=== PATIENT | female | born 1935 | race Caucasian/White ===

== ENCOUNTER 2017-02-09 21:50 | Emergency (ER) | payer OTHER ==
[~2017-02-09] VITALS: Ht 152.4 cm; Wt 65.0 kg
[~2017-02-09 21:50] MED LIST: ADULT LOW DOSE81 M1 PO; AMPICILLIN500 M1 PO; ASPIR 8181 MG PO; ASPIRIN CHEWABL81 M1 PO; CELEXA10 M1 PO; CELEXA10 MG PO; COBAL-10001000 MCG/2 IM; CYANOCOBALAM1000 MCG PO; DESOXIMETASONE 0.05% TP; Dilantin PO; IRON325 M1 PO; KEFLEX500 MG PO; Keflex PO; Levaquin PO; MITRAZOL POWDER30 GM TP; Milk Of Magnesia,MOM PO; NEOSPORIN BOTH EYES; PRINIVIL5 MG PO; ROBITUSSIN DM T10 ML PO; SEPTRA DS TABL1 EACH PO; SEROQUEL12.5 MG PO; TOPICORT 0.05%60 GM TP; TOPICORT60 GM TP; TYLENOL REGULA325 MG PO; TYLENOL325 M1 PO; Tylenol; VICODIN,LORT1 TABLET PO; ZESTRIL5 MG PO; ZOCOR40 MG PO; Zestril,Prinivil PO; Zocor PO; celeXA PO
[2017-02-10 01:59] VITALS: BP 103/61
== END 2017-02-10 02:25 ==
LOC: EME → EDBD 21:50 → EME 02-10 02:25
DX: S00.83XA Contusion of other part of head, initial encounter (principal); W05.0XXA Fall from non-moving wheelchair, initial encounter; Y92.129 Unspecified place in nursing home as the place of occurrence of the external cause; F02.80 Dementia in other diseases classified elsewhere, unspecified severity, without behavioral disturbance, psychotic disturbance, mood disturbance, and anxiety; G30.9 Alzheimer's disease, unspecified; Z66 Do not resuscitate; E78.5 Hyperlipidemia, unspecified; I10 Essential (primary) hypertension; F32.9 Major depressive disorder, single episode, unspecified; I73.9 Peripheral vascular disease, unspecified; Z88.5 Allergy status to narcotic agent
CPT/HCPCS: 70450; 99281; 99285

== ENCOUNTER → 2017-06-25 | Outpatient (CLI) | payer OTHER ==
[~2017-06-25] VITALS: Ht 160 cm; Wt 44.9 kg
[~2017-06-25] MED LIST changes: +MILK OF MAGN PO
== END ==
LOC: AMB 13:14
PROC: 0DH63UZ Insertion of Feeding Device into Stomach, Percutaneous Approach (ICD-10-PCS; principal; 2017-06-25)
DX: F03.90 Unspecified dementia, unspecified severity, without behavioral disturbance, psychotic disturbance, mood disturbance, and anxiety (principal); R63.6 Underweight; R63.4 Abnormal weight loss; Z68.1 Body mass index [BMI] 19.9 or less, adult; I10 Essential (primary) hypertension; I73.9 Peripheral vascular disease, unspecified; D64.9 Anemia, unspecified; Z79.82 Long term (current) use of aspirin; K22.2 Esophageal obstruction; K44.9 Diaphragmatic hernia without obstruction or gangrene; K29.70 Gastritis, unspecified, without bleeding
CPT/HCPCS: J2250

== ENCOUNTER 2017-09-16 09:43 | Inpatient (IN) | payer OTHER ==
[~2017-09-16] VITALS: Ht 157.5 cm; Wt 67.9 kg
[~2017-09-16 09:43] MED LIST changes: +MILK OF MAGN GT; -MILK OF MAGN PO
[2017-09-16 10:47] LABS: HEMATOCRIT 41.9 % (36.0-46.0); HEMOGLOBIN 14.5 G/DL (11.9-15.5); MCH 31.1 PG (29.0-34.0); MCHC 34.6 G/DL (30.0-36.0); MCV 89.9 FL (83-99); PLATELET COUNT 405 K/uL (156-360); RBC DIS.WIDTH-CV 15.4 % (11.8-14.6); RBC DIS.WIDTH-SD 50.4 % (39-53); RED BLOOD COUNT 4.66 M/uL (3.80-5.20); WHITE BLOOD COUNT 28.1 K/uL (4.1-10.2)
[2017-09-16 11:27] LABS: ALBUMIN 3.4 G/DL (3.2-4.8); CHLORIDE 101 MEQ/L (99-109); POTASSIUM 5.4 MEQ/L (3.7-5.4); SODIUM 136 MEQ/L (136-147); TOTAL BILIRUBIN 0.3 MG/DL (0.0-1.0)
[2017-09-16 11:48] LABS: ALKALINE PHOSPHATASE 109 IU/L (3-129); ALT (GPT) 14 IU/L (3-49); AST (GOT) 24 IU/L (2-34); CREATININE 2.3 MG/DL (0.6-1.3); GFR ESTIMATE (CALCULATED) 22 mL/min/; GLUCOSE 191 mg/dL (70-99); LIPASE < 3.0 U/L (1.0-51.0); TOTAL PROTEIN 6.8 G/DL (6.4-8.3); UREA NITROGEN (BUN) 78 mg/dL (9-23)
[2017-09-16 11:49] LABS: ABS NEUTROPHIL COUNT 24.7; ANISOCYTOSIS NONE SEEN; BAND NEUTROPHILS 19.3 % (0-8.0); EOSINOPHIL ABS CT 0; LYMPHOCYTES 5.1 % (15.0-45.0); MONOCYTES 6.9 % (0-9.0); PLAT.SUFFICIENCY INCREASED; SEG.NEUTROPHILS 68.7 % (46.0-76.0); SMUDGE CELLS 1.7
[2017-09-16] MEDS ORDERED: CHILD ASPIRIN81 M1 GT (12:48)
[2017-09-16] MEDS ORDERED: CYANOCOBAL1000 MCG/2 IM (12:49)
[2017-09-16] MEDS ORDERED: DAILY VITAMIN1 EAC5 GT (12:50)
[2017-09-16] MEDS ORDERED: POTASSIUM20 MEQ/11 GT (12:51)
[2017-09-16] MEDS ORDERED: ZOCOR20 MG GT (12:51)
[2017-09-16] MEDS ORDERED: JUVEN PACKET1 EACH GT (12:52)
[2017-09-16] MEDS ORDERED: DILANTIN INFATA50 MG GT ×2 (12:56→12:57)
[2017-09-16 12:57] LABS: APPEARANCE CLOUDY ((CLEAR)); BILIRUBIN NEGATIVE; BLOOD LARGE; COLOR AMBER ((YELLOW)); GLUCOSE (STRIP) NEGATIVE; KETONES NEGATIVE; LEUKOCYTES LARGE; NITRITE NEGATIVE; PROTEIN (STRIP) >=500; SPECIFIC GRAVITY 1.013 (1.000-1.030); UROBILINOGEN 0.2 MG/DL (0.2-1.0)
[2017-09-16] MEDS ORDERED: DULCOLAX10 MG PR (12:58)
[2017-09-16] MEDS ORDERED: FLEET ENEMA-AD118 ML PR (12:59)
[2017-09-16] MEDS ORDERED: TYLENOL REGULA325 MG GT (12:59)
[2017-09-16 13:19] LABS: EPITHELIAL CELLS RARE /HPF; MUCUS NONE SEEN /LPF; WHITE BLOOD CELLS 30-40 /HPF (0-5)
[2017-09-16 13:20] LABS: BACTERIA RARE /HPF; UCUL ADDED? YES
[2017-09-16 18:31] VITALS: BP 116/53
[2017-09-17 00:42] VITALS: BP 120/52
[2017-09-17 04:11] VITALS: BP 118/54
[2017-09-17 06:28] LABS: HEMATOCRIT 31.3 % (36.0-46.0); MCH 30.6 PG (29.0-34.0); MCHC 32.9 G/DL (30.0-36.0); MCV 92.9 FL (83-99); PLATELET COUNT 292 K/uL (156-360); RBC DIS.WIDTH-CV 15.7 % (11.8-14.6); RBC DIS.WIDTH-SD 53.4 % (39-53); WHITE BLOOD COUNT 15.7 K/uL (4.1-10.2)
[2017-09-17 06:31] LABS: HEMOGLOBIN 10.3 G/DL (11.9-15.5); RED BLOOD COUNT 3.37 M/uL (3.80-5.20)
[2017-09-17 07:02] VITALS: BP 121/56
[2017-09-17 08:29] LABS: ALBUMIN 2.3 G/DL (3.2-4.8); GLUCOSE 132 mg/dL (70-99); HDL CHOLESTEROL 42 MG/DL (Desirable>=50); LDL CHOLESTEROL 67 mg/dL (Desirable<100); MAGNESIUM 1.7 mg/dl (1.3-2.7); NON-HDL CHOLESTEROL 83 mg/dL (Desirable<160); THYROTROPIN (TSH) 3.9 MIU/L (0.4-5.5); TOTAL CHOLESTEROL 125 mg/dL (Desirable<200); TRIGLYCERIDES 79 MG/DL (Normal: <150); UREA NITROGEN (BUN) 50 mg/dL (9-23)
[2017-09-17 08:33] LABS: CHLORIDE 113 MEQ/L (99-109); GFR ESTIMATE (CALCULATED) 57 mL/min/; POTASSIUM 3.8 MEQ/L (3.7-5.4); SODIUM 144 MEQ/L (136-147)
[2017-09-17 11:18] VITALS: BP 122/59
[2017-09-17 13:21] LABS: VANCOMYCIN, TROUGH 8.7 MCG/ML (10-20)
[2017-09-17 16:02] VITALS: BP 120/57
[2017-09-17 23:51] VITALS: BP 118/62
[2017-09-18 06:00] LABS: BASOPHIL (%) 0.3 % (0-1); EOSINOPHIL COUNT 0.3 K/uL (0-0.3); HEMATOCRIT 28.9 % (36.0-46.0); HEMOGLOBIN 9.6 G/DL (11.9-15.5); IMMATURE GRANULOCYTE (%) 0.6 % (0.0-0.7); LYMPHOCYTE COUNT 1.3 K/uL (1.0-2.8); MCH 31.1 PG (29.0-34.0); MCHC 33.2 G/DL (30.0-36.0); MCV 93.5 FL (83-99); MONOCYTE COUNT 0.5 K/uL (0-0.8); NEUTROPHIL (%) 81.1 % (45-76); NEUTROPHIL COUNT 9.3 K/uL (1.8-6.4); PLATELET COUNT 276 K/uL (156-360); RBC DIS.WIDTH-CV 15.5 % (11.8-14.6); RBC DIS.WIDTH-SD 53.3 % (39-53); RED BLOOD COUNT 3.09 M/uL (3.80-5.20); WHITE BLOOD COUNT 11.5 K/uL (4.1-10.2)
[2017-09-18 06:16] LABS: ALBUMIN 2.3 G/DL (3.2-4.8); ALKALINE PHOSPHATASE 91 IU/L (3-129); ALT (GPT) 16 IU/L (3-49); AST (GOT) 18 IU/L (2-34); CHLORIDE 116 MEQ/L (99-109); CREATININE 0.6 MG/DL (0.6-1.3); GFR ESTIMATE (CALCULATED) > 59 mL/min/; GLUCOSE 121 mg/dL (70-99); POTASSIUM 3.4 MEQ/L (3.7-5.4); SODIUM 148 MEQ/L (136-147); UREA NITROGEN (BUN) 27 mg/dL (9-23)
[2017-09-18 06:49] LABS: TOTAL BILIRUBIN 0.2 MG/DL (0.0-1.0); TOTAL PROTEIN 4.5 G/DL (6.4-8.3)
[2017-09-18 07:52] VITALS: BP 159/60
[2017-09-18 16:11] VITALS: BP 149/59
[2017-09-18 23:51] VITALS: BP 129/76
[2017-09-19 05:36] LABS: CHLORIDE 107 MEQ/L (99-109); CREATININE 0.5 MG/DL (0.6-1.3); GFR ESTIMATE (CALCULATED) > 59 mL/min/; GLUCOSE 149 mg/dL (70-99); POTASSIUM 3.6 MEQ/L (3.7-5.4); SODIUM 143 MEQ/L (136-147); UREA NITROGEN (BUN) 15 mg/dL (9-23)
[2017-09-19 08:09] VITALS: BP 156/59
[2017-09-19 15:48] VITALS: BP 145/52
[2017-09-19 23:48] VITALS: BP 114/55
[2017-09-20 08:23] VITALS: BP 142/50
[2017-09-20 15:42] VITALS: BP 127/71
[2017-09-20 20:02] VITALS: BP 124/56
[2017-09-20 22:37] VITALS: BP 144/78
[2017-09-21 03:36] VITALS: BP 120/62
[2017-09-21 08:23] VITALS: BP 119/57
[2017-09-21 15:35] VITALS: BP 117/57
[2017-09-22 01:10] VITALS: BP 116/57
[2017-09-22 07:58] VITALS: BP 132/60
[2017-09-22 16:34] VITALS: BP 134/79
[2017-09-22 18:53] VITALS: BP 134/66
== END 2017-09-22 20:00 | DRG 682 ==
LOC: EME 09:43 → EDOF 15:10 → 2EAST 15:10 → ENRESERV 16:02 → 2EAST 17:51
PROVIDERS: Emergency Medicine; Internal Medicine; Internal Medicine Nephrology
DX: N17.0 Acute kidney failure with tubular necrosis (principal); N39.0 Urinary tract infection, site not specified; E87.2 Acidosis; L89.893 Pressure ulcer of other site, stage 3; L89.153 Pressure ulcer of sacral region, stage 3; I10 Essential (primary) hypertension; G40.909 Epilepsy, unspecified, not intractable, without status epilepticus; F02.80 Dementia in other diseases classified elsewhere, unspecified severity, without behavioral disturbance, psychotic disturbance, mood disturbance, and anxiety; E78.5 Hyperlipidemia, unspecified; F32.9 Major depressive disorder, single episode, unspecified; K57.30 Diverticulosis of large intestine without perforation or abscess without bleeding; R13.10 Dysphagia, unspecified; R09.89 Other specified symptoms and signs involving the circulatory and respiratory systems; E46 Unspecified protein-calorie malnutrition; R82.71 Bacteriuria; N18.9 Chronic kidney disease, unspecified; K44.9 Diaphragmatic hernia without obstruction or gangrene; I51.7 Cardiomegaly; E86.0 Dehydration; E87.0 Hyperosmolality and hypernatremia; N20.0 Calculus of kidney; I73.9 Peripheral vascular disease, unspecified; G30.9 Alzheimer's disease, unspecified; Z87.440 Personal history of urinary (tract) infections; Z86.73 Personal history of transient ischemic attack (TIA), and cerebral infarction without residual deficits; Z74.01 Bed confinement status; Z93.1 Gastrostomy status
CPT/HCPCS: 71045; 74176; 80048; 80053; 80061; 80185; 80202; 81003; 82040; 82306; 82607; 83605; 83690; 83735; 84134; 84145 90; 84439; 84443; 85025; 85027; 87040; 87070; 87075; 87077; 87086; 87186; 87205; 93005; 94799; 99281; 99285; A6214; A6260; J0692; J3370; J7030